=== PATIENT | male | born 1980 | race Caucasian/White ===

== ENCOUNTER 2021-07-01 21:08 | Emergency (ER) | payer SELFPAY ==
[~2021-07-01] VITALS: Ht 172.7 cm; Wt 84.2 kg
[2021-07-01] MEDS ORDERED: FLUORESCEIN SODIUM 1MG/STRIP LEFTEYE ONE (21:45)
[2021-07-01 21:54] VITALS: BP 139/90
[2021-07-01] MEDS ORDERED: BALANCED SALT IRRIG SOLN 15ML IR ONE (22:45)
[2021-07-01] MEDS ORDERED: TETRACAINE 0.5% OPHTH DROPS 4ML EACHEYE ONE (22:45)
== END 2021-07-01 23:45 | disposition home or self-care (01) ==
LOC: ER 21:08
DX: T15.92XA Foreign body on external eye, part unspecified, left eye, initial encounter (principal); X58.XXXA Exposure to other specified factors, initial encounter; Y93.89 Activity, other specified; Y92.89 Other specified places as the place of occurrence of the external cause; Y99.8 Other external cause status
CPT/HCPCS: 99283